=== PATIENT | female | born 1995 | race Caucasian/White ===

== ENCOUNTER → 2017-06-30 10:51 | Emergency (ER) | payer OTHER ==
[~2017-06-30 10:51] MED LIST: Ketorolac INJ* 30 MG/ML 1 ML VIAL IV ONE; NS 0.9% 1000 ML* 1,000 ML IV ONE
[2017-06-30 12:20] LABS: Hematocrit 42 % (35-47); Hemoglobin 14.3 g/dl (12.0-16.0); Mean Corpuscular HGB Conc 34 g/dl (31-36); Mean Corpuscular Hemoglobin 30 pg (27-31); Mean Corpuscular Volume 88 fL (80-97); Mean Platelet Volume 8 um3 (7.4-10.4); Red Blood Count 4.74 10^6/ul (4.0-5.4); Red Cell Distribution Width 13 % (10.5-15); White Blood Count 5.4 10^3/ul (3.5-10.8)
[2017-06-30 12:37] LABS: ALT 21 U/L (7-52); AST 17 U/L (13-39); Albumin 4.1 g/dL (3.2-5.2); Alkaline Phosphatase 28 U/L (34-104); Anion Gap 7 mmol/L (2-11); BUN/Creatinine Ratio 8.3 (8-20); Blood Urea Nitrogen 7 mg/dL (6-24); C Reactive Protein < 1.00 mg/L (< 5.00); CO2 Carbon Dioxide 22 mmol/L (22-32); Calcium 9.8 mg/dL (8.6-10.3); Chloride 104 mmol/L (101-111); EGFR Non-African American 84.8 (>60); Globulin 3.5 g/dL (2-4); Glucose 80 mg/dL (70-100); Lipase < 10 U/L (11.0-82.0); Potassium 3.5 mmol/L (3.5-5.0); Sodium 133 mmol/L (133-145); Total Protein 7.6 g/dL (6.4-8.9)
[2017-06-30 14:24] LABS: Urine Bilirubin Negative (Negative); Urine Glucose Negative (Negative); Urine Nitrite Negative (Negative)
[2017-06-30 14:31] VITALS: BP 111/66
--- NOTE | 2017-06-30 15:18 | RAD ---
Indication: Vaginal spotting for one month. On oral contraceptives. Comparison: No relevant prior exams available on the [facility] PACS for comparison. Technique: Transvaginal pelvic ultrasound. Report: 6.7 x 3.2 x 5.4 cm unremarkable retroverted uterus with 3.6 mm endometrium. Cervical tenderness noted on real-time exam. Negative for free pelvic fluid. 3.1 x 2.0 x 1.4 cm RIGHT ovary. 2.9 x 1.8 x 1.4 cm LEFT ovary. Normal vascular flow to both ovaries documented. Small bilateral ovarian follicles. No suspicious ovarian or extraovarian adnexal region lesions evident. IMPRESSION: 1. Cervical tenderness noted on transvaginal exam. Correlate with clinical assessment. 2. No sonographic abnormality of the uterus, endometrium, or adnexal regions.
--- NOTE | 2017-06-30 16:19 | CONSULT ---
Consult Consult: pelvic exam was completed by me for Dr Neil. Cervix normal in appearance, bleeding from os, appears to be menstrual, no sign of infection, no cervical motion tenderness. some uterus and adnexa tenderness on bimanual and examination tenderness. patient states it is usually uncomfortable/painful for her. No other concerns at this time. normal external exam.
--- NOTE | 2017-06-30 17:56 | ED ---
Elysia Mcdonough Emily, scribed for Hai Neil MD on 06/30/17 at 1150 . Abdominal Pain/Female - HPI Summary HPI Summary: This patient is a 22 year old F presenting to [facility] accompanied by a male with a chief complaint of epigastric pain since 1030 this morning. The pain radiates to her bilateral LE and pelvis. The patient rates the pain 9/10 in severity. Symptoms aggravated by position. Symptoms alleviated by nothing. Patient reports lightheadedness, SOB, and vaginal bleeding (since a year ago starting BCP). Patient denies nausea. She denies recent trauma. She is on BCP and took a placebo pill yesterday. PMHx of ovarian cyst. - History of Current Complaint Chief Complaint: EDAbdPain Stated Complaint: ABD PAIN Time Seen by Provider: 06/30/17 11:44 Hx Obtained From: Patient Onset/Duration: Sudden Onset, Lasting Hours, Still Present Timing: Constant Severity Initially: Severe Severity Currently: Severe Pain Intensity: 9 Pain Scale Used: 0-10 Numeric Location: Epigastric Radiates: Yes Radiates to: Other - bilateral LE and pelvis Aggravating Factor(s): Other: - Position Alleviating Factor(s): Nothing Associated Signs and Symptoms: Positive: Other: - lightheadedness, SOB, and vaginal bleeding (since a year ago starting BCP). Patient denies nausea. Allergies/Adverse Reactions: Allergies Allergy/AdvReac Type Severity Reaction Status Date / Time No Known Allergies Allergy Verified 06/30/17 10:59 PMH/Surg Hx/FS Hx/Imm Hx History: Reports: Other Problems/Disorders - ovarian cyst Sensory History: Denies: Hx Deafness Opthamlomology History: Denies: Hx Legally Blind Infectious Disease History: Denies: Traveled Outside the [place] in Last 30 Days - Family History Known Family History: Positive: Cardiac Disease - [place] and bypass in father. , Other - Breast cancer. Negative: Diabetes - Social History Alcohol Use: None Substance Use Type: Reports: None Smoking Status (MU): Unknown if Ever Smoked Review of Systems Positive: Shortness Of Breath Positive: Abdominal Pain. Negative: Nausea Positive: other - Vaginal bleeding Neurological: Other - lightheadedness All Other Systems Reviewed And Are Negative: Yes Physical Exam Triage Information Reviewed: Yes Vital Signs On Initial Exam: Initial Vitals Temp Pulse Resp BP Pulse Ox 97.7 F 84 22 119/79 99 09/04/17 10:58 06/30/17 10:58 06/30/17 10:58 06/30/17 10:58 06/30/17 10:58 Vital Signs Reviewed: Yes Appearance: Positive: Well-Appearing, No Pain Distress Skin: Positive: Warm, Skin Color Reflects Adequate Perfusion, Dry Head/Face: Positive: Normal Head/Face Inspection Eyes: Positive: Normal ENT: Positive: Normal ENT inspection Neck: Positive: Supple, Nontender Respiratory/Lung Sounds: Positive: Clear to Auscultation, Breath Sounds Present Cardiovascular: Positive: RRR Abdomen Description: Positive: Soft, Other: - Periumbilical, LUQ, and left adnexa tenderness. Bowel Sounds: Positive: Present Musculoskeletal: Positive: Normal, Strength/ROM Intact Neurological: Positive: Normal, Sensory/Motor Intact, Alert, Oriented to Person Place, Time, CN Intact II-III Psychiatric: Positive: Affect/Mood Appropriate Diagnostics - Vital Signs Vital Signs Temp Pulse Resp BP Pulse Ox 06/30/17 10:58 97.7 F 84 22 119/79 99 - Laboratory Lab Results: Lab Results 06/30/17 06/30/17 06/30/17 Range/Units 12:09 12:09 12:09 WBC 5.4 (3.5-10.8) 10^3/ul RBC 4.74 (4.0-5.4) 10^6/ul Hgb 14.3 (12.0-16.0) g/dl Hct 42 (35-47) % MCV 88 (80-97) fL MCH 30 (27-31) pg MCHC 34 (31-36) g/dl RDW 13 (10.5-15) % Plt Count 247 (150-450) 10^3/ul MPV 8 (7.4-10.4) um3 Neut % (Auto) 60.8 (38-83) % Lymph % (Auto) 28.4 (25-47) % [place] % (Auto) 7.9 (1-9) % Eos % (Auto) 2.6 (0-6) % Baso % (Auto) 0.3 (0-2) % Absolute Neuts (auto) 3.3 (1.5-7.7) 10^3/ul Absolute Lymphs (auto) 1.5 (1.0-4.8) 10^3/ul Absolute Monos (auto) 0.4 (0-0.8) 10^3/ul Absolute Eos (auto) 0.1 (0-0.6) 10^3/ul Absolute Basos (auto) 0 (0-0.2) 10^3/ul Absolute Nucleated RBC 0 10^3/ul Nucleated RBC % 0.1 Sodium 133 (133-145) mmol/L Potassium 3.5 (3.5-5.0) mmol/L Chloride 104 (101-111) mmol/L Carbon Dioxide 22 (22-32) mmol/L Anion Gap 7 (2-11) mmol/L BUN 7 (6-24) mg/dL Creatinine 0.84 (0.51-0.95) mg/dL Est GFR ( Amer) 109.0 (>60) Est GFR (Non-Af Amer) 84.8 (>60) BUN/Creatinine Ratio 8.3 (8-20) Glucose 80 (70-100) mg/dL Lactic Acid 1.5 (0.5-2.0) mmol/L Calcium 9.8 (8.6-10.3) mg/dL Total Bilirubin 0.50 (0.2-1.0) mg/dL AST 17 (13-39) U/L ALT 21 (7-52) U/L Alkaline Phosphatase 28 L (34-104) U/L C-Reactive Protein < 1.00 (< 5.00) mg/L Total Protein 7.6 (6.4-8.9) g/dL Albumin 4.1 (3.2-5.2) g/dL Globulin 3.5 (2-4) g/dL Albumin/Globulin Ratio 1.2 (1-3) Lipase < 10 L (11.0-82.0) U/L Beta HCG, Quant < 0.60 mIU/mL Urine Color Urine Appearance Urine pH (5-9) Ur Specific [place] (1.010-1.030) Urine Protein (Negative) Urine Ketones (Negative) Urine Blood (Negative) Urine Nitrate (Negative) Urine Bilirubin (Negative) Urine Urobilinogen (Negative) Ur Leukocyte Esterase (Negative) Urine Glucose (Negative) 06/30/17 Range/Units 14:10 WBC (3.5-10.8) 10^3/ul RBC (4.0-5.4) 10^6/ul Hgb (12.0-16.0) g/dl Hct (35-47) % MCV (80-97) fL MCH (27-31) pg MCHC (31-36) g/dl RDW (10.5-15) % Plt Count (150-450) 10^3/ul MPV (7.4-10.4) um3 Neut % (Auto) (38-83) % Lymph % (Auto) (25-47) % [place] % (Auto) (1-9) % Eos % (Auto) (0-6) % Baso % (Auto) (0-2) % Absolute Neuts (auto) (1.5-7.7) 10^3/ul Absolute Lymphs (auto) (1.0-4.8) 10^3/ul Absolute Monos (auto) (0-0.8) 10^3/ul Absolute Eos (auto) (0-0.6) 10^3/ul Absolute Basos (auto) (0-0.2) 10^3/ul Absolute Nucleated RBC 10^3/ul Nucleated RBC % Sodium (133-145) mmol/L Potassium (3.5-5.0) mmol/L Chloride (101-111) mmol/L Carbon Dioxide (22-32) mmol/L Anion Gap (2-11) mmol/L BUN (6-24) mg/dL Creatinine (0.51-0.95) mg/dL Est GFR ( Amer) (>60) Est GFR (Non-Af Amer) (>60) BUN/Creatinine Ratio (8-20) Glucose (70-100) mg/dL Lactic Acid (0.5-2.0) mmol/L Calcium (8.6-10.3) mg/dL Total Bilirubin (0.2-1.0) mg/dL AST (13-39) U/L ALT (7-52) U/L Alkaline Phosphatase (34-104) U/L C-Reactive Protein (< 5.00) mg/L Total Protein (6.4-8.9) g/dL Albumin (3.2-5.2) g/dL Globulin (2-4) g/dL Albumin/Globulin Ratio (1-3) Lipase (11.0-82.0) U/L Beta HCG, Quant mIU/mL Urine Color Yellow Urine Appearance Clear Urine pH 6.0 (5-9) Ur Specific [place] 1.006 L (1.010-1.030) Urine Protein Negative (Negative) Urine Ketones Negative (Negative) Urine Blood Negative (Negative) Urine Nitrate Negative (Negative) Urine Bilirubin Negative (Negative) Urine Urobilinogen Negative (Negative) Ur Leukocyte Esterase Negative (Negative) Urine Glucose Negative (Negative) Result Diagrams: 06/30/17 12:09 06/30/17 12:09 Lab Statement: Any lab studies that have been ordered have been reviewed, and results considered in the medical decision making process. - Additional Comments Diagnostic Additional Comments: Transvaginal US reveals, per radiologist, 1. Cervical tenderness noted on transvaginal exam. Correlate with clinical assessment. 2. No sonographic abnormality of the uterus, endometrium, or adnexal regions. ED physician has reviewed this radiology report and agrees. Abdominal Pain Fem Course/Dx - Course Course Of Treatment: Ms. Medellin presented with the fairly sudden onset of epigastric and diffuse abdominal pain accompanied by nausea. She was diffusely tender including the left adnexa externally and she had been on continuous OC that she just recently stopped. U/S and labs were unremarkable and she improved a lot here with ketorolac. - Diagnoses Provider Diagnoses: Abdominal pain Discharge - Discharge Plan Condition: Stable Disposition: HOME Patient Education Materials: Acute Abdominal Pain (ED) Referrals: [facility] [Outside] - 3 Days The documentation as recorded by the Elysia vaughan Emily accurately reflects the service I personally performed and the decisions made by me, Hai Neil MD.
== END | disposition home or self-care (01) ==
LOC: ED 10:51
DX: R10.9 Unspecified abdominal pain (principal); R42 Dizziness and giddiness; R06.02 Shortness of breath; N93.9 Abnormal uterine and vaginal bleeding, unspecified
CPT/HCPCS: 36415; 76830; 80053; 81003; 83605; 83690; 84702; 85025; 86140; 87480; 87491; 87510; 87591; 87661; 96374; 99282

== ENCOUNTER → 2018-07-10 01:00 | Emergency (ER) | payer BC, OTHER ==
[~2018-07-10 01:00] MED LIST changes: +Acetaminophen TAB* 325 MG PO ONE; -Ketorolac INJ* 30 MG/ML 1 ML VIAL IV ONE; -NS 0.9% 1000 ML* 1,000 ML IV ONE
--- NOTE | 2018-07-10 02:10 | ED ---
Psychiatric Complaint - HPI Summary HPI Summary: This patient is a 23 year old F presenting to [facility] accompanied by a friend with a chief complaint of SIB since 1800 07/09/18. She endorses depression, endorses SIB/SI with plan to cut, and (per triage) she tried to cut her thigh tonight, and feels unsafe in her thoughts. I cant really talk right now. She denies Rx. LMP was just completed. She endorses drinking 3 bottles of hard cider tonight. - History Of Current Complaint Chief Complaint: EDMentalHealth Time Seen by Provider: 07/10/18 01:25 Hx Obtained From: Patient Hx Last Menstrual Period: just finished 07/09/18 Onset/Duration: Lasting Hours, Still Present Timing: Constant Severity Initially: Moderate Severity Currently: Moderate Character: Depressed Aggravating Factor(s): Alcohol Use - "3 bottles of hard cider" Alleviating Factor(s): Nothing Associated Signs And Symptoms: Positive: Negative Related History: Positive For: Prior Psychiatric Issues - PMHx anxiety and depression Has Suicidal: Reports: Thoughts, With A Plan, Demonstrates Gesture Has Homicidal: Denies: Thoughts - Allergies/Home Medications Allergies/Adverse Reactions: Allergies Allergy/AdvReac Type Severity Reaction Status Date / Time No Known Allergies Allergy Verified 07/10/18 01:08 PMH/Surg Hx/FS Hx/Imm Hx Endocrine/Hematology History: Denies: Hx Sickle Cell Disease Cardiovascular History: Denies: Hx Pacemaker/ICD Respiratory History: Denies: Hx Lung Cancer GI History: Denies: Hx Ileostomy History: Reports: Other Problems/Disorders - ovarian cyst Sensory History: Denies: Hx Legally Blind, Hx Deafness Opthamlomology History: Denies: Hx Legally Blind EENT History: Denies: Hx Deafness Psychiatric History: Reports: Hx Anxiety, Hx Depression Infectious Disease History: No Infectious Disease History: Denies: Traveled Outside the [place] in Last 30 Days - Family History Known Family History: Positive: Cardiac Disease - [place] and bypass in father. , Other - Breast cancer. Negative: Diabetes - Social History Occupation: Student Lives: Dormitory/Roommates Alcohol Use: None Substance Use Type: Reports: None Hx Tobacco Use: No Smoking Status (MU): Never Smoked Tobacco Review of Systems Negative: Fever Positive: no symptoms reported Positive: Anxious, Depressed, Other - SI/SIB All Other Systems Reviewed And Are Negative: Yes Physical Exam - Summary Physical Exam Summary: Appearance: Well-appearing, Well-nourished, lying in bed comfortable Skin: Warm, dry, no obvious rash Eyes: sclera anicteric, no conjunctival pallor ENT: mucous membranes moist Neck: deferred Respiratory: No signs of respiratory distress Cardiovascular: Appears well perfused, pulses are nml Abdomen: deferred Musculoskeletal: Moving all 4 extremities without obvious discomfort Neurological: Awake and alert, mentation is normal, speech is fluent and appropriate Psychiatric: affect is normal, does not appear anxious or depressed Triage Information Reviewed: Yes Vital Signs On Initial Exam: Initial Vitals Temp Pulse Resp BP Pulse Ox 98.0 F 111 18 139/66 95 07/10/18 01:02 07/10/18 01:02 07/10/18 01:02 07/10/18 01:02 07/10/18 01:02 Vital Signs Reviewed: Yes Diagnostics - Vital Signs Vital Signs Temp Pulse Resp BP Pulse Ox 07/10/18 01:02 98.0 F 111 18 139/66 95 - Laboratory Result Diagrams: 07/10/18 02:09 07/10/18 02:09 Lab Statement: Any lab studies that have been ordered have been reviewed, and results considered in the medical decision making process. Course/Dx - Course Course Of Treatment: A 23-year-old F presents to the ED with a CC of SI/SIB with a plan to cut since 1800. (+) depression, anxiety. (-) Rx. Per triage, PMHx anxiety and depression, attempted SIB to cut thigh, drank 3 bottles of hard cider tonight. Pt's tox screen was (-). - Differential Dx/Clinical Impression Differential Diagnosis/HQI/PQRI: Positive: Depression, Suicidal Ideation Provider Diagnosis: Depression, Suicidal ideation - Physician Notifications Discussed Care Of Patient With: Robert Lucero Time Discussed With Above Provider: 05:30 Instructed by Provider To: Other - Per RN Alysia, pt is to be discharged. Discharge - Sign-Out/Discharge Documenting (check all that apply): Patient Departure - discharge - Discharge Plan Condition: Stable Disposition: HOME Patient Education Materials: Depression (ED), Anxiety (ED), Suicide Prevention (ED) Referrals: Counseling, and Psychological Services at [place] [Other] (The phone number listed is the crisis line, if you have a crisis after hours, please call 911, or campus security.) No Primary Care Phys,NOPCP [Primary Care Provider] - - Billing Disposition and Condition Condition: STABLE Disposition: Home - Attestation Statements Document Initiated by Bernice: Yes Documenting Scribe: Pastor Love Provider For Whom Bernice is Documenting (Include Credential): Dr. Hai Mayo MD Scribe Attestation: IPastor scribed for Dr. Hai Mayo MD on 07/10/18 at 1845. Scribe Documentation Reviewed: Yes Provider Attestation: The documentation as recorded by the Pastor vaughan accurately reflects the service I personally performed and the decisions made by me, Dr. Hai Mayo MD
[2018-07-10 02:23] LABS: ABS Basophils 0 10^3/ul (0-0.2); ABS Eosinophils 0.1 10^3/ul (0-0.6); ABS Lymphocytes 1.9 10^3/ul (1.0-4.8); ABS Monocytes 0.4 10^3/ul (0-0.8); ABS Neutrophils 2.1 10^3/ul (1.5-7.7); ABS Nucleated RBC 0 10^3/ul; Eosinophil % 1.4 % (0-6); Hematocrit 41 % (35-47); Hemoglobin 14.3 g/dl (12.0-16.0); Lymphocyte % 42.7 % (25-47); Mean Corpuscular HGB Conc 35 g/dl (31-36); Mean Corpuscular Hemoglobin 31 pg (27-31); Mean Corpuscular Volume 89 fL (80-97); Mean Platelet Volume 8.1 um3 (7.4-10.4); Nucleated Red Blood Cells % 0.2; Platelet Count 278 10^3/ul (150-450); Red Blood Count 4.62 10^6/ul (4.00-5.40); Red Cell Distribution Width 14 % (10.5-15); White Blood Count 4.5 10^3/ul (3.5-10.8)
[2018-07-10 02:43] LABS: EGFR Non-African American 67.2 (>60)
[2018-07-10 02:53] VITALS: BP 107/64
== END | disposition home or self-care (01) ==
LOC: ED 01:00
DX: F32.9 Major depressive disorder, single episode, unspecified (principal); R45.851 Suicidal ideations
CPT/HCPCS: 36415; 80053; 80307; 80320; 80329; 85025; 99284; A9270-GY; G0480